=== PATIENT | female | born 1950 | race Caucasian/White ===

== ENCOUNTER → 2016-06-02 | Outpatient (CLI) | payer OTHER ==
[~2016-06-02] MED LIST: ADVIN10/60 INH; ALT5 PO; AMLO-110 PO; ASPEC81 PO; BUPR-79 PO; LPT20 PO; NRN/600 PO; OXYC-57 PO; PRAV20TA PO; PRLSR20 PO; SUCR1TAB29 PO; TRAM-10 PO; VNTHFA/IN INH; [UNRECOGNIZED DRUG - CODE] PO
[2016-06-02 12:46] LABS: ALT/SGPT 22 U/L (12-78); BLOOD UREA NITROGEN 14 mg/dl (7-18); BUN/CREATININE RATIO 15.2 (10-20); CALCIUM 9.3 mg/dl (8.5-10.1); CARBON DIOXIDE 28 mmol/L (21-32); CHLORIDE 105 mmol/L (98-107); CHOLESTEROL 155 mg/dl (0-200); CREATININE 0.95 mg/dl (0.60-1.20); GLUCOSE 103 mg/dl (70-99); POTASSIUM 4.2 mmol/L (3.5-5.1); SODIUM 141 mmol/L (136-145)
[2016-06-02 12:50] LABS: ALB/GLOB RATIO 1.1 (0.9-2); ALKALINE PHOSPHATASE 71 U/L (45-117); AST/SGOT 8 U/L (15-37); CHOLESTEROL/HDL RATIO 2.3; HDL CHOLESTEROL 68 mg/dl; LDL CHOLESTEROL CALCULATED 62 mg/dl; TRIGLYCERIDES 127 mg/dl (0-150); VERY LOW DENSITY LIPOPROT CALC 25 mg/dl
[2016-06-02 13:17] LABS: ESTIMATED AVERAGE GLUCOSE 105 mg/dl; HA1C FLAG Normal (Normal)
== END | disposition home or self-care (01) ==
LOC: C.LABBFT 08:28
PROVIDERS: ATTEND Nurse Practitioner
DX: R73.01 Impaired fasting glucose (principal); E78.5 Hyperlipidemia, unspecified

== ENCOUNTER → 2016-06-08 | Outpatient (CLI) | payer OTHER | END | disposition home or self-care (01) | LOC: C.PAPS 14:52 | PROVIDERS: ATTEND Nurse Practitioner | DX: Z12.4 Encounter for screening for malignant neoplasm of cervix (principal) ==

== ENCOUNTER 2016-06-17 14:57 | Inpatient (IN) | payer OTHER ==
[~2016-06-17] VITALS: Ht 154.9 cm; Wt 82.2 kg
[~2016-06-17 14:57] MED LIST changes: -AMLO-110 PO; -ASPEC81 PO; -LPT20 PO; -NRN/600 PO; -PRAV20TA PO; -SUCR1TAB29 PO; -TRAM-10 PO; -VNTHFA/IN INH
[2016-06-17] MEDS ORDERED: SODIUM CHLORIDE 0.9% 1000ML 1,000 ML IV SCH (17:21)
[2016-06-17] MEDS ORDERED: VNTHFA/IN INH (17:34)
[2016-06-17] MEDS ORDERED: PRLSR20 PO (17:34)
[2016-06-17] MEDS ORDERED: PRAV20TA PO (17:34)
[2016-06-17] MEDS ORDERED: NRN/600 PO (17:34)
[2016-06-17] MEDS ORDERED: AMLO-110 PO (17:34)
[2016-06-17] MEDS ORDERED: TRAM-10 PO (17:34)
[2016-06-17] MEDS ORDERED: SUCR1TAB29 PO (17:34)
[2016-06-17 18:11] LABS: BASO % 0.3 %; BASO ABS # 0.02 K/uL (0-0.2); COMPLETE YES; EOS % 2.1 %; HEMATOCRIT 40.9 % (37-47); IG% 0.1 %; LYMPH % 22.7 %; LYMPH ABS # 1.55 K/uL (1.2-3.4); MEAN CELL VOLUME 94.2 fL (80-100); MEAN CORPUSCULAR HEMOGLOBIN 33.2 pg (25-34); MEAN CORPUSCULAR HGB CONC 35.2 g/dl (32-36); MEAN PLATELET VOLUME 10.4 fL (7.4-10.4); MONO % 7.6 %; NEUT % 67.2 %; PLATELET COUNT 204 K/uL (130-400); RED BLOOD COUNT 4.34 M/uL (4.2-5.4); WHITE BLOOD COUNT 6.82 K/uL (4.8-10.8)
[2016-06-17 18:21] LABS: PARTIAL THROMBOPLASTIN RATIO 1.1; PROTHROMBIN TIME (PATIENT) 10.4 SECONDS (9.0-12.0)
[2016-06-17 18:28] LABS: BLOOD UREA NITROGEN 15 mg/dl (7-18); BUN/CREATININE RATIO 16.9 (10-20); CALCIUM 9.3 mg/dl (8.5-10.1); CARBON DIOXIDE 29 mmol/L (21-32); CHLORIDE 105 mmol/L (98-107); CREATININE 0.86 mg/dl (0.60-1.20); GLUCOSE 93 mg/dl (70-99); POTASSIUM 3.9 mmol/L (3.5-5.1); SODIUM 141 mmol/L (136-145)
--- NOTE | 2016-06-17 18:57 | DIAGNOSTIC IMAGING REPORT ---
HEAD CT NONCONTRAST CT DOSE: 537.48 mGy.cm HISTORY: Left-sided blurry vision. Headache. Stroke TECHNIQUE: Multiaxial CT images of the head were performed without the use of intravenous contrast. Automated exposure control was utilized for this study. Comparison: None. Findings: The paranasal sinuses and mastoid air cells are clear. The calvarium and skull base are intact. There is no mass, hematoma, midline shift, acute infarct. White matter hypodensity is nonspecific but suggestive of microvascular ischemic change. The ventricles and sulci demonstrate mild age-related involutional changes. Impression: No acute intracranial abnormality. Electronically signed by: Davian Rivers M.D. 06/17/2016 6:55 PM Dictated Date/Time: 06/17/2016 6:52 PM
[2016-06-17 19:06] LABS: URINE APPEARANCE CLEAR (CLEAR); URINE BILIRUBIN NEG (NEG); URINE COLOR YELLOW; URINE EPITHELIAL CELL AUTO 20-30 /lpf (0-5); URINE NITRITE NEG (NEG); URINE PH 6.5 (4.5-7.5); URINE SPECIFIC GRAVITY 1.011 (1.000-1.030); UROBILINOGEN NEG (NEG); ZZUR CULT IF INDIC CLEAN CATCH YES
[2016-06-17 19:08] LABS: MANUAL MICROSCOPIC REQUIRED? NO; REVIEW REQ? NO
[2016-06-17] MEDS ORDERED: ACETAMINOPHEN 500 MG TAB PO STA (19:11)
[2016-06-17] MEDS ORDERED: ASPIRIN 81 MG CHEW PO STA (19:16)
[2016-06-17] MEDS: HydrALAZINE HCL 20 MG/ML VIAL IV. STA (19:28)
[2016-06-17 19:33] LABS: BENZODIAZEPINE, URINE NEG (NEG); COCAINE,URINE NEG (NEG); PHENCYCLIDINE, URINE NEG (NEG)
[2016-06-17] MEDS ORDERED: NITROGLYCERIN 0.4 MG SL PER TAB CHARGE SL PRN (20:00)
[2016-06-17] MEDS ORDERED: TRAMADOL HCL 50 MG TAB PO PRN (20:00)
[2016-06-17] MEDS ORDERED: ALBUTEROL HFA 8 GM INHALER INH PRN (20:00)
[2016-06-17] MEDS ORDERED: PHARMACIST DISCHARGE MED REC CONSULT PRN (20:00)
[2016-06-17] MEDS ORDERED: HydrALAZINE HCL 20 MG/ML VIAL IV. PRN (20:15)
[2016-06-17] MEDS ORDERED: LORAZEPAM 0.5 MG TAB SL STA (21:26)
--- NOTE | 2016-06-17 22:09 | DIAGNOSTIC IMAGING REPORT ---
Brain MRA HISTORY: Dizziness. Stroke - Attention to [place] TECHNIQUE: 3-D [id number] MRA of the brain was performed without contrast. COMPARISON STUDY: None. FINDINGS: Visualized intracranial internal carotid arteries, distal vertebral arteries, and basilar artery are widely patent. There is no significant stenosis, occlusion, or aneurysm seen within the bilateral ACAs or MCAs. There are hypoplastic bilateral P1 segments. The bilateral posterior cerebral arteries are fed primarily through the bilateral posterior communicating arteries. Mild multifocal stenosis within the right [employer] which could be due to motion artifact. IMPRESSION: Mild multifocal stenosis within the right [employer] which could be due to motion artifact. Otherwise, no significant stenosis, occlusion, or aneurysm within the [place]. Electronically signed by: Davian Rivers M.D. 06/17/2016 10:07 PM Dictated Date/Time: 06/17/2016 10:02 PM
[2016-06-17] MEDS ORDERED: GADAVIST IV PRN (22:30)
--- NOTE | 2016-06-17 22:35 | DIAGNOSTIC IMAGING REPORT ---
NECK MRA HISTORY: Dizziness. Stroke TECHNIQUE: [id number] and gadolinium-enhanced MRA of the neck was performed both before and after the intravenous administration of contrast. All measurements were calculated based on NASCET criteria. COMPARISON STUDY: None. FINDINGS: The aortic arch and proximal great vessels are widely patent. There is no significant stenosis, occlusion, or dissection identified within the bilateral common carotid, internal carotid, or vertebral arteries. Tortuous bilateral internal carotid arteries. IMPRESSION: No significant stenosis, occlusion, or dissection identified within the carotid or vertebral arteries. Electronically signed by: Davian Rivers M.D. 06/17/2016 10:33 PM Dictated Date/Time: 06/17/2016 10:29 PM
[2016-06-17 22:59] VITALS: BP 169/100; PULSE 77; TEMP 36.4; O2SAT 97; Ht 154.9 cm; Wt 82.2 kg
--- NOTE | 2016-06-17 23:12 | DIAGNOSTIC IMAGING REPORT ---
Brain MRI WITH AND WITHOUT CONTRAST HISTORY: Dizziness. Stroke TECHNIQUE: Multiplanar multisequence MRI of the brain was performed both before and after the intravenous administration of contrast. COMPARISON STUDY: Head CT 06/17/2016. FINDINGS: There is no mass, hematoma, midline shift, or acute infarct. The paranasal sinuses are clear. The mastoid air cells are clear. The ventricles and sulci demonstrate mild age-related involutional changes. Scattered foci of T2 hyperintensity seen within the periventricular and subcortical white matter are nonspecific but suggestive of mild microvascular ischemic changes. The major vascular flow voids at the skull base are well-maintained. No abnormal enhancement. IMPRESSION: No acute intracranial abnormality. Scattered foci of T2 hyperintensity seen within the periventricular and subcortical white matter are nonspecific but favor microvascular ischemic change. Electronically signed by: Davian Rivers M.D. 06/17/2016 11:10 PM Dictated Date/Time: 06/17/2016 11:05 PM
[2016-06-17] MEDS ORDERED: DiphenhydrAMINE INJ 25 MG in SYRINGE 0 ML IV PRN (23:30)
--- NOTE | 2016-06-17 23:31 | History and Physical ---
History & Physical Date & Time of Service: Jun 17, 2016 at 23:31 Chief Complaint: Acute Right-Sided Weakness, Cva Primary Care Physician: Bushra House C.R.N.PCj History of Present Illness Source: patient, family The patient is a 66-year-old female who presents to emergency department with complaint of seeing black spots in front of her left eye at approximately 1300 today, face and neck flushing with a warmth sensation, dizziness, a generalized headache, decreased strength in her right leg affecting her ability to walk more so than usual, and decreased coordination with her right arm and hand when attempting to grab an object from a family member. Her granddaughter lives with her, reports that she had a history of previous TIA, for which she takes aspirin daily. The patient reports that she did not take her gabapentin for tramadol for chronic hip and back pain today. Past Medical/Surgical History Medical Problems: (1) Chronic back pain Status: Chronic (2) Hypercholesteremia Status: Chronic Social History Smoking Status: Never Smoker Smokeless Tobacco Use: No Alcohol Use: occasionally Drug Use: none Marital Status: Housing status: lives with family Occupational Status: retired Immunizations History of Influenza Vaccine: N/A History of Tetanus Vaccine?: No History of Pneumococcal: No History of Hepatitis B Vaccine: No Multi-Drug Resistant Organisms History of MDRO: No Allergies Coded Allergies: No Known Allergies (Verified Allergy, Unknown, *, 08/29/08) Home Medications Scheduled Albuterol Hfa (Ventolin Hfa), 2 PUFFS INH PRN UD Amlodipine (Norvasc), 5 MG PO DAILY Gabapentin (Neurontin), 600 MG PO TID Omeprazole (Prilosec), 20 MG PO DAILY Pravastatin (Pravachol ), 20 MG PO DAILY Sucralfate (Carafate), 1 GM PO AC Scheduled PRN Tramadol (Ultram), 1-2 MG PO Q6H PRN for Pain Review of Systems The patient denies chest pain, palpitations, shortness of breath, cough, lower extremity swelling, hearing change, sore throat, fevers, chills, sweats, weight change, fatigue, nausea, vomiting, abdominal pain, pelvic pain, blood in urine or stool, dysuria, urinary frequency or urgency, memory loss, rash, abnormal bruising or bleeding, imbalance, generalized weakness, night sweats, or allergy symptoms. The review of systems is otherwise negative other than for that already noted above, and at least 10 systems have been reviewed. Physical Exam Vital Signs Date Time Temp Pulse Resp B/P Pulse Ox O2 Delivery O2 Flow Rate FiO2 06/17/16 22:59 36.4 77 20 169/100 97 Room Air 06/17/16 21:15 66 18 180/90 96 06/17/16 20:06 64 18 197/83 97 Room Air 06/17/16 20:00 210/106 06/17/16 19:27 168/94 06/17/16 18:42 61 18 200/104 98 Room Air 06/17/16 17:53 70 18 214/116 97 Room Air 06/17/16 17:30 98 Room Air 06/17/16 15:03 36.7 74 18 180/91 98 Room Air 189/82 The patient is awake, well-developed and adequately nourished, alert and oriented 3, normocephalic and atraumatic, lying in bed and in no acute distress. HEENT--PERRL, EOMI, mucous membranes and oropharynx dry. Neck--supple, no JVD or bruits, thyroid normal, trachea midline, no adenopathy. Heart--normal S1 and S2, no extra beats, no murmurs, rubs or gallops. Lungs--clear bilaterally with good air movement, no respiratory distress, no accessory muscle use. Abdomen--normal bowel sounds and soft, nontender and nondistended, no hernias or masses, no organomegaly. Extremities--no cyanosis, clubbing or edema. There are good distal pulses b/l. Dermatologic--normal skin turgor, normal color, warm and dry, no abnormal lymph nodes, no rash. Neurologic--cranial nerves II through XII grossly intact. Sensory exam is normal. Left upper and lower extremity with normal strength. Right upper extremity 4+/5, and right lower extremity with 3+/5. Psychiatric--normal affect. Diagnostics Laboratory Results Results Past 24 Hours Test 06/17/16 18:00 06/17/16 18:33 06/17/16 18:34 06/17/16 18:40 Range/Units White Blood Count 6.82 4.8-10.8 K/uL Red Blood Count 4.34 4.2-5.4 M/uL Hemoglobin 14.4 12.0-16.0 g/dL Hematocrit 40.9 37-47 % Mean Corpuscular Volume 94.2 80-100 fL Mean Corpuscular Hemoglobin 33.2 25-34 pg Mean Corpuscular Hemoglobin Concent 35.2 32-36 g/dl Platelet Count 204 130-400 K/uL Mean Platelet Volume 10.4 7.4-10.4 fL Neutrophils (%) (Auto) 67.2 % Lymphocytes (%) (Auto) 22.7 % Monocytes (%) (Auto) 7.6 % Eosinophils (%) (Auto) 2.1 % Basophils (%) (Auto) 0.3 % Neutrophils # (Auto) 4.58 1.4-6.5 K/uL Lymphocytes # (Auto) 1.55 1.2-3.4 K/uL Monocytes # (Auto) 0.52 0.11-0.59 K/uL Eosinophils # (Auto) 0.14 0-0.5 K/uL Basophils # (Auto) 0.02 0-0.2 K/uL RDW Standard Deviation 40.2 36.4-46.3 fL RDW Coefficient of Variation 11.8 11.5-14.5 % Immature Granulocyte % (Auto) 0.1 % Immature Granulocyte # (Auto) 0.01 0.00-0.02 K/uL Prothrombin Time 10.4 9.0-12.0 SECONDS Prothromb Time International Ratio 1.0 0.9-1.1 Activated Partial Thromboplast Time 27.5 21.0-31.0 SECONDS Partial Thromboplastin Ratio 1.1 D-Dimer 250 0-500 ug/L FEU Sodium Level 141 136-145 mmol/L Potassium Level 3.9 3.5-5.1 mmol/L Chloride Level 105 98-107 mmol/L Carbon Dioxide Level 29 21-32 mmol/L Anion Gap 7.0 3-11 mmol/L Blood Urea Nitrogen 15 7-18 mg/dl Creatinine 0.86 0.60-1.20 mg/dl Est Creatinine Clear Calc Drug Dose 60.9 ml/min Estimated GFR () 80.5 Estimated GFR (Non- 69.4 BUN/Creatinine Ratio 16.9 10-20 Random Glucose 93 70-99 mg/dl Calcium Level 9.3 8.5-10.1 mg/dl Total Creatine Kinase 63 26-192 U/L Creatine Kinase MB < 0.5 0.5-3.6 ng/ml Creatine Kinase MB Ratio 0-3.0 Troponin I < 0.015 0-0.045 ng/ml Bedside Glucose 93 70-90 mg/dl Bedside Prothrombin Time INR 1.0 0.9-1.1 Urine Color YELLOW Urine Appearance CLEAR CLEAR Urine pH 6.5 4.5-7.5 Urine Specific [place] 1.011 1.000-1.030 Urine Protein NEG NEG Urine Glucose (UA) NEG NEG Urine Ketones NEG NEG Urine Occult Blood 1+ NEG Urine Nitrite NEG NEG Urine Bilirubin NEG NEG Urine Urobilinogen NEG NEG Urine Leukocyte Esterase MODERATE NEG Urine WBC (Auto) 10-30 0-5 /hpf Urine RBC (Auto) 5-10 0-4 /hpf Urine Hyaline Casts (Auto) 0 0-5 /lpf Urine Epithelial Cells (Auto) 20-30 0-5 /lpf Urine Bacteria (Auto) NEG NEG Urine Opiates Screen NEG NEG Urine Methadone, Qualitative NEG NEG Urine Barbiturates NEG NEG Urine Phencyclidine (PCP) Level NEG NEG Ur Amphetamine/Methamphetamine NEG NEG MDMA (Ecstasy) Screen NEG NEG Urine Benzodiazepines Screen NEG NEG Urine Cocaine Metabolite NEG NEG Urine Marijuana (THC) NEG NEG Test 06/17/16 20:52 Range/Units Microbiology Results 06/17/16 Urine Culture, Received Pending Diagnostic Radiology Patient Name: TATIANNA GIL Unit Number: [id number] Dictated: 06/17/161851 Transcribed: 06/17/161851 [employer] Printed Date/Time: [~ rep prt dt]/[~ rep prt tm] [~ rep ct labl] - [~ rep ct ivnm] [facility] [place] [address] Dictated: 06/17/161851 Transcribed: 06/17/161851 [employer] Printed Date/Time: [~ rep prt dt]/[~ rep prt tm] [~ rep ct labl] - [~ rep ct ivnm] [~ rep ct add3]] HEAD CT NONCONTRAST CT DOSE: 537.48 mGy.cm HISTORY: Left-sided blurry vision. Headache. Stroke TECHNIQUE: Multiaxial CT images of the head were performed without the use of intravenous contrast. Automated exposure control was utilized for this study. Comparison: None. Findings: The paranasal sinuses and mastoid air cells are clear. The calvarium and skull base are intact. There is no mass, hematoma, midline shift, acute infarct. White matter hypodensity is nonspecific but suggestive of microvascular ischemic change. The ventricles and sulci demonstrate mild age-related involutional changes. Impression: No acute intracranial abnormality. Electronically signed by: Davian Rivers M.D. 06/17/2016 6:55 PM Dictated Date/Time: 06/17/2016 6:52 PM The status of this report is Signed. Draft = Not yet reviewed or approved by Radiologist. Signed = Reviewed and approved by Radiologist. <AttendingPhy></AttendingPhy> <FamilyPhy>Bushra House, C.R.N.P.</FamilyPhy> <PrimaryPhy>Bushra House, C.R.N.P.</PrimaryPhy> <UnitNumber>[id number]</ UnitNumber> <VisitNumber>[id number]</VisitNumber> <PatientName>TATIANNA GIL</PatientName> <DateOfBirth>1950</DateOfBirth> <Location>[facility]</ Location> <ServiceDate>06/17/16</ServiceDate> <MNE>ESINDI</MNE> <OrderingPhy> Yovani Em MD</OrderingPhy> <OrderingPhyMNE>f rep ord dr españa</ OrderingPhyMNE> <DictatingPhyMNE>f rep dict dr españa</DictatingPhyMNE> <CCListMNE> f rep ct patria</CCListMNE> <AdmittingPhyMNE>f pt admit dr españa</AdmittingPhyMNE> < AttendingPhyMNE>f pt attend dr españa</AttendingPhyMNE> <ConsultingPhyMNE>f pt consult dr españa</ConsultingPhyMNE> <FamilyPhyMNE>f pt fam dr españa</FamilyPhyMNE> <OtherPhyMNE>f pt other dr españa</OtherPhyMNE> < PrimaryPhyMNE>f pt prim care dr españa</PrimaryPhyMNE> <ReferringPhyMNE>f pt referring dr españa</ReferringPhyMNE> EKG EKG shows normal sinus rhythm at 71 bpm, with no change compared to 08/25/2008. Impression Assessment and Plan CVA with residual weakness right lower extremity greater than right upper extremity--the patient will be admitted to the telemetry unit for serial cardiac enzymes, cardiac rhythm monitoring and a 2-D echocardiogram with Dopplers. CT of the head does not show any acute events. I've ordered an MRI of the brain combo, MRA of the neck combo, and an MRA of the head without contrast. We'll place on aspirin 81 mg by mouth daily. Consult neurology, PT, OT, speech therapy, pharmacy. Of note, she did not meet the time window for administration of TPA per ED records. Hypertension--we will allow permissive hypertension with systolic blood pressure of 180 overnight, and then modify target as the day progresses based on imaging and response. We'll continue amlodipine 5 mg by mouth daily. And place on hydralazine 10 mg IV every 4 hours when necessary systolic blood pressure greater than 185. Hypercholesterolemia--she's been on Pravachol 20 mg by mouth daily. We'll check a fasting lipid profile in the a.m., and change her statin to Lipitor 20 mg by mouth every morning starting tomorrow. GERD--continue Carafate 1 g by mouth before meals, and change omeprazole 20 mg by mouth daily to pantoprazole 40 mg by mouth daily. Peripheral neuropathy--continue gabapentin 600 mg by mouth 3 times a day. Asthma--continue Ventolin HFA 2 puffs 4 times a day when necessary. Level of Care Telemetry Advanced Directives Existing Advance Directive: No Existing Living Will: No Existing Power of Voice Coach: No Resuscitation Status FULL RESUSCITATION VTE Prophylaxis VTE Risk Assessment Done? Y/N: Yes Risk Level: High Given or contraindicated: SCD's
[2016-06-17] MEDS ORDERED: DiphenhydrAMINE HCL 50 MG/ML VIAL IV PRN (23:45)
[2016-06-18] MEDS: GABAPENTIN 600 MG TAB PO SCH ×3 (00:10→14:56)
--- NOTE | 2016-06-18 00:57 | EMERGENCY ROOM VISIT NOTE ---
History Report prepared by Macy: Anika Tello Under the Supervision of: Dr. Yovani Em M.D. First contact with patient: 17:20 Chief Complaint: DIZZY Stated Complaint: DIZZY, HIGH BP, BLACK SPOT LEFT EYE Nursing Triage Summary: Triage note: Pt reports she has been seeing black spots in her left eye since 1200. pt reports she had dizziness earlier but that has decreased. pt reports hx of high blood pressure and she takes medication but she has not missed any doses. pt reports headache. History of Present Illness The patient is a 66 year old female who presents to the Emergency Room with complaints of persistent visual changes in her left eye since 1300 today. She reports she has been seeing "black spots" in her left eye since approximately 1300 today. She states she was grocery shopping when her symptoms started and reports she started to "feel really hot and dizzy" and noticed her face and neck felt flushed. The dizziness has since mostly resolved. She describes her eye as feeling like "someone stung me with a rubber band". She denies bumping her eye or scratching it recently. She tried using eye drops to see if that helped alleviate her symptoms, but states they provided no relief. She also complains of a headache and admits to a history of hypertension, for which she takes daily medication. She denies missing any recent medication doses. The patient denies dropping anything recently or being unable to hold onto things. Her right leg does feel more weak than normal, but she states "that's my bad leg ". Her granddaughter reports the patient has a history of a previous TIA. The only daily blood thinner the patient takes is Aspirin. The patient notes she did not take her usual Gabapentin and Tramadol, for a history of chronic hip and back pain, today. Pt denies LOC, fevers, chills, diaphoresis, neck pain, chest pain, breathing difficulties, nausea, vomiting, abdominal pain, back pain , melena, hematochezia, urinary symptoms, numbness, lymphadenopathy, rash, or other complaints. Her primary care physician is Dr. Bushra House. Source of History: patient Onset: 1300 today Position: eye (left) Quality: other (left eye feels like it was "stung with a rubber band") Timing: other (persistent) Modifying Factors (Relieving): other (eye drops provided no relief) Associated Symptoms: + headache Review of Systems See HPI for pertinent positives and negatives. A total of ten systems were reviewed and were otherwise negative. Past Medical & Surgical Medical Problems: (1) Acute right-sided weakness (2) Chronic back pain (3) CVA (cerebral vascular accident) (4) Hypercholesteremia (5) Hypertension Social History Smoking Status: Never Smoker Alcohol Use: occasionally Drug Use: none Marital Status: Housing Status: lives with family Occupation Status: retired Current/Historical Medications Scheduled Albuterol Hfa (Ventolin Hfa), 2 PUFFS INH PRN UD Amlodipine (Norvasc), 5 MG PO DAILY Gabapentin (Neurontin), 600 MG PO TID Omeprazole (Prilosec), 20 MG PO DAILY Pravastatin (Pravachol ), 20 MG PO DAILY Sucralfate (Carafate), 1 GM PO AC Scheduled PRN Tramadol (Ultram), 1-2 MG PO Q6H PRN for Pain Allergies Coded Allergies: No Known Allergies (Verified Allergy, Unknown, *, 08/29/08) Physical Exam Vital Signs Date Time Temp Pulse Resp B/P Pulse Ox O2 Delivery O2 Flow Rate FiO2 06/17/16 20:06 64 18 197/83 97 Room Air 06/17/16 20:00 210/106 06/17/16 19:27 168/94 06/17/16 18:42 61 18 200/104 98 Room Air 06/17/16 17:53 70 18 214/116 97 Room Air 06/17/16 17:30 98 Room Air 06/17/16 15:03 36.7 74 18 180/91 98 Room Air 189/82 Physical Exam GENERAL: Awake, alert, well appearing, no distress HENT: Normocephalic, atraumatic. TM's normal. Oropharynx unremarkable. EYES: PERRL. Normal conjunctiva. Sclera non-icteric. Fundi normal. EOMI. Corneas are clear. Fundi normal. Left eye visual samuels intact to static and dynamic testing. NECK: Supple. No nuchal rigidity. FROM. RESPIRATORY: CTA CARDIAC: RRR. Extremities warm and well perfused. ABDOMEN: Soft, non distended. No tenderness to palpation. No rebound or guarding. No masses. MUSCULOSKELETAL: Unremarkable. EXTREMITIES: No edema. No discoloration. Gross motor strength 5/5 bilaterally. Right leg drift. NEURO: Normal sensorium. No sensory or motor deficits noted. Gait normal. Speech normal. Cranial nerves two through 12 intact. No pronator drift. Negative Romberg. Normal rapid alternating movements. SKIN: No rash or jaundice noted. LYMPH: No adenopathy. Medical Decision & Procedures ER Provider Diagnostic Interpretation: This CT scan was reviewed and interpreted by the radiologist and reviewed by myself. HEAD CT NONCONTRAST CT DOSE: 537.48 mGy.cm HISTORY: Left-sided blurry vision. Headache. Stroke TECHNIQUE: Multiaxial CT images of the head were performed without the use of intravenous contrast. Automated exposure control was utilized for this study. Comparison: None. Findings: The paranasal sinuses and mastoid air cells are clear. The calvarium and skull base are intact. There is no mass, hematoma, midline shift, acute infarct. White matter hypodensity is nonspecific but suggestive of microvascular ischemic change. The ventricles and sulci demonstrate mild age-related involutional changes. Impression: No acute intracranial abnormality. Electronically signed by: Davian Rivers M.D. 06/17/2016 6:55 PM Laboratory Results 06/17/16 18:00 Red Blood Count 4.34, Mean Corpuscular Volume 94.2, Mean Corpuscular Hemoglobin 33.2, Mean Corpuscular Hemoglobin Concent 35.2, Mean Platelet Volume 10.4, Neutrophils (%) (Auto) 67.2, Lymphocytes (%) (Auto) 22.7, Monocytes (%) (Auto) 7.6, Eosinophils (%) (Auto) 2.1, Basophils (%) (Auto) 0.3, Neutrophils # (Auto) 4.58, Lymphocytes # (Auto) 1.55, Monocytes # (Auto) 0.52, Eosinophils # (Auto) 0.14, Basophils # (Auto) 0.02 06/17/16 18:00 Test 06/17/16 18:00 06/17/16 18:33 06/17/16 18:34 06/17/16 18:40 White Blood Count 6.82 K/uL (4.8-10.8) Red Blood Count 4.34 M/uL (4.2-5.4) Hemoglobin 14.4 g/dL (12.0-16.0) Hematocrit 40.9 % (37-47) Mean Corpuscular Volume 94.2 fL (80-100) Mean Corpuscular Hemoglobin 33.2 pg (25-34) Mean Corpuscular Hemoglobin Concent 35.2 g/dl (32-36) Platelet Count 204 K/uL (130-400) Mean Platelet Volume 10.4 fL (7.4-10.4) Neutrophils (%) (Auto) 67.2 % Lymphocytes (%) (Auto) 22.7 % Monocytes (%) (Auto) 7.6 % Eosinophils (%) (Auto) 2.1 % Basophils (%) (Auto) 0.3 % Neutrophils # (Auto) 4.58 K/uL (1.4-6.5) Lymphocytes # (Auto) 1.55 K/uL (1.2-3.4) Monocytes # (Auto) 0.52 K/uL (0.11-0.59) Eosinophils # (Auto) 0.14 K/uL (0-0.5) Basophils # (Auto) 0.02 K/uL (0-0.2) RDW Standard Deviation 40.2 fL (36.4-46.3) RDW Coefficient of Variation 11.8 % (11.5-14.5) Immature Granulocyte % (Auto) 0.1 % Immature Granulocyte # (Auto) 0.01 K/uL (0.00-0.02) Prothrombin Time 10.4 SECONDS (9.0-12.0) Prothromb Time International Ratio 1.0 (0.9-1.1) Activated Partial Thromboplast Time 27.5 SECONDS (21.0-31.0) Partial Thromboplastin Ratio 1.1 D-Dimer 250 ug/L FEU (0-500) Anion Gap 7.0 mmol/L (3-11) Est Creatinine Clear Calc Drug Dose 60.9 ml/min Estimated GFR () 80.5 Estimated GFR (Non- 69.4 BUN/Creatinine Ratio 16.9 (10-20) Calcium Level 9.3 mg/dl (8.5-10.1) Total Creatine Kinase 63 U/L (26-192) Creatine Kinase MB < 0.5 ng/ml (0.5-3.6) Creatine Kinase MB Ratio (0-3.0) Troponin I < 0.015 ng/ml (0-0.045) Bedside Glucose 93 mg/dl (70-90) Bedside Prothrombin Time INR 1.0 (0.9-1.1) Urine Color YELLOW Urine Appearance CLEAR (CLEAR) Urine pH 6.5 (4.5-7.5) Urine Specific [place] 1.011 (1.000-1.030) Urine Protein NEG (NEG) Urine Glucose (UA) NEG (NEG) Urine Ketones NEG (NEG) Urine Occult Blood 1+ (NEG) Urine Nitrite NEG (NEG) Urine Bilirubin NEG (NEG) Urine Urobilinogen NEG (NEG) Urine Leukocyte Esterase MODERATE (NEG) Urine WBC (Auto) 10-30 /hpf (0-5) Urine RBC (Auto) 5-10 /hpf (0-4) Urine Hyaline Casts (Auto) 0 /lpf (0-5) Urine Epithelial Cells (Auto) 20-30 /lpf (0-5) Urine Bacteria (Auto) NEG (NEG) Urine Opiates Screen NEG (NEG) Urine Methadone, Qualitative NEG (NEG) Urine Barbiturates NEG (NEG) Urine Phencyclidine (PCP) Level NEG (NEG) Ur Amphetamine/Methamphetamine NEG (NEG) MDMA (Ecstasy) Screen NEG (NEG) Urine Benzodiazepines Screen NEG (NEG) Urine Cocaine Metabolite NEG (NEG) Urine Marijuana (THC) NEG (NEG) Laboratory results reviewed by me Medications Administered Medications (Trade) Dose Ordered Sig/Yelena Route Start Time Stop Time Status Last Admin Dose Admin Sodium Chloride (Nss 1000ml) 1,000 ml @ 50 mls/hr Q20H IV 06/17/16 17:21 06/17/16 23:24 DC 06/17/16 19:28 50 MLS/HR Hydralazine HCl (HydrALAZINE INJ) 10 mg NOW STAT IV. 06/17/16 19:11 06/17/16 19:12 DC 06/17/16 19:28 5 MG Acetaminophen (Tylenol Tab) 1,000 mg NOW STAT PO 06/17/16 19:11 06/17/16 19:12 DC 06/17/16 19:28 1,000 MG Aspirin (Aspirin Chew) 324 mg NOW STAT PO 06/17/16 19:16 06/17/16 19:17 DC 06/17/16 19:27 324 MG Tramadol HCl (Ultram Tab) 50 mg Q4H PRN PO 4/7/17 20:00 07/17/16 19:59 06/17/16 21:33 50 MG ECG Indication: other (hypertension) Rate (beats per minute): 71 Rhythm: normal sinus Findings: no acute ischemic change, no ectopy ED Course 1723: The patient was evaluated in room A4. A complete history and physical exam was performed. 1720: NSS 1000 ml @ 50 mls/hr IV. 1729: Intraocular pressure in the right eye is 24.3, and 22 in the left eye. 1910: Acetaminophen 1000 mg PO, Hydralazine 10 mg IV. 1915: Aspirin 324 mg PO. 1916: I discussed the patients case with Dr. Langston, [facility] Hospitalist. The patient will be further evaluated. 1929: I reevaluated the patient. She disclosed to me that when she was in the waiting room earlier, waiting to be seen, she briefly could not remember her last name or social security number, but when she got back into the exam room, her memory issues resolved. I discussed my plan for her to remain in the hospital for further evaluation and management and she verbalized complete understanding and agreement. Medical Decision Triage Nursing notes reviewed. The patient's presentation and history were concerning for visual disturbance as well as weakness. Etiologies such as metabolic, infection, hypo/hyperglycemia, electrolyte abnormalities, cardiac sources, intracerebral event, toxicologic, neurologic, migraine, vitreous detachment, arterial occlusion, glaucoma, as well as others were entertained. The patient was evaluated. On further history the patient then noted that she was having some trouble remembering her name and basic information. Her physical examination was concerning for drift in the right leg. The patient was seen 5 hours after the onset of symptoms. She underwent CT imaging which do not show any acute findings. Her blood pressure was elevated and she did get a dose of IV hydralazine. The patient was also given Tylenol and saline hydration. Her CBC and chemistry panel were unremarkable. Urinalysis and cardiac markers were unremarkable. The patient appears to have had a small stroke. She is currently out of the therapeutic window and her symptoms actually were getting better on reassessment. The patient will need further workup in the hospital. I did check her ocular pressures and they were minimally elevated but actually better in the affected eye. Consultation was made with Dr. Chandra Langston. He evaluated the patient in the emergency department and admitted her for further treatment. She was also given aspirin. The chart was completed utilizing iGo Speech voice recognition software. Grammatical errors, random word insertions, pronoun errors, and incomplete sentences are an occasional consequence of this system due to software limitations, ambient noise, and hardware issues. Any formal questions or concerns about the content, text, or information contained within the body of this dictation should be directly addressed to the physician for clarification. Consults Time Called: 1913 Consulting Physician: Dr. Langston [facility] Hospitalist Returned Call: 1916 I discussed the patients case with Dr. Langston [facility] Hospitalist. The patient will be further evaluated. Impression Primary Impression: Right leg weakness Additional Impressions: Subjective visual disturbance of left eye Headache Hypertension Scribe Attestation The scribe's documentation has been prepared under my direction and personally reviewed by me in its entirety. I confirm that the note above accurately reflects all work, treatment, procedures, and medical decision making performed by me. Departure Information Dispostion Being Evaluated By Hospitalist Referrals Bushra House, C.R.N.P. (PCP) Patient Instructions My [facility] Stroke History Time Last Known Well 1200 Stroke t-PA Criteria Reviewed Does NOT meet criteria for t-PA Reason t-PA Not Given Treatment not indicated (over 5 hours from onset) Problem Qualifiers Additional Impressions: Headache Headache type: unspecified Headache chronicity pattern: acute headache Intractability: not intractable Qualified Codes: R51 - Headache Hypertension Hypertension type: unspecified secondary hypertension Qualified Codes: I15.9 - Secondary hypertension, unspecified
[2016-06-18 04:07] VITALS: BP 129/80; PULSE 69; TEMP 36.4; O2SAT 96
[2016-06-18 05:32] LABS: BASO % 0.4 %; BASO ABS # 0.02 K/uL (0-0.2); COMPLETE YES; EOS % 2.6 %; HEMATOCRIT 38.2 % (37-47); IG% 0.2 %; LYMPH % 27.3 %; LYMPH ABS # 1.36 K/uL (1.2-3.4); MEAN CORPUSCULAR HEMOGLOBIN 32.9 pg (25-34); MEAN CORPUSCULAR HGB CONC 34.3 g/dl (32-36); MEAN PLATELET VOLUME 10.9 fL (7.4-10.4); MONO % 9.2 %; NEUT % 60.3 %; PLATELET COUNT 185 K/uL (130-400); RED BLOOD COUNT 3.98 M/uL (4.2-5.4); WHITE BLOOD COUNT 4.99 K/uL (4.8-10.8)
[2016-06-18 05:40] LABS: PROTHROMBIN TIME (PATIENT) 10.5 SECONDS (9.0-12.0)
[2016-06-18 05:54] LABS: BUN/CREATININE RATIO 17.8 (10-20); CALCIUM 8.9 mg/dl (8.5-10.1); CREATININE 0.88 mg/dl (0.60-1.20); POTASSIUM 3.9 mmol/L (3.5-5.1)
[2016-06-18 05:57] LABS: CHOLESTEROL/HDL RATIO 2.7
[2016-06-18] MEDS: SUCRALFATE 1 GM TAB PO SCH ×2 (06:11→12:54)
[2016-06-18 06:21] LABS: ESTIMATED AVERAGE GLUCOSE 103 mg/dl; HA1C FLAG Normal (Normal)
[2016-06-18 07:48] VITALS: BP 160/85; PULSE 70; TEMP 36.8; O2SAT 97
[2016-06-18] MEDS: ACETAMINOPHEN 325 MG TAB PO PRN ×2 (08:50→14:57)
[2016-06-18] MEDS ORDERED: ASPIRIN 81 MG ECTAB PO SCH (09:00)
[2016-06-18] MEDS ORDERED: ATORVASTATIN 20 MG TAB PO SCH (09:00)
[2016-06-18] MEDS ORDERED: AMLODIPINE BESYLATE 5 MG TAB PO SCH (09:00)
[2016-06-18] MEDS ORDERED: PANTOprazole SOD 40 MG TAB PO SCH (09:00)
--- NOTE | 2016-06-18 09:51 | ECHOCARDIOGRAM REPORT ---
*NOTICE TO RECEIVING CONSTITUTION PARTY AGENCY This information is strictly Confidential and protected under [place] law. [place] law prohibits you from making any further disclosure of this information unless further disclosure is expressly permitted by the written consent of the person to whom it pertains or is authorized by law. A general authorization for the release of medical or other information is not sufficient for this purpose. Hospital accepts no responsibility if the information is made available to any other person, INCLUDING THE PATIENT. Interpretation Summary * Name: TATIANNA GIL Study Date: 06/18/2016 07:06 AM BP: 129/80 mmHg * Patient Location: [facility] [place] HR: 67 * : 1950 (M/d/yyyy) Gender: Female Height: 61 in * Age: 66 yrs Ethnicity: [place] Weight: 181 lb * Ordering Physician: Chandra Langston * Referring Physician: Self, Referred * Performed By: Adams Hurtado RDCS * * Reason For Study: Cerebral ischemia/embolus * BSA: 1.8 m2 * -- Conclusions -- * There is borderline concentric left ventricular hypertrophy. * Left ventricular systolic function is normal. * Grade I diastolic dysfunction, (abnormal relaxation pattern). * The left atrium is borderline dilated. * Injection of contrast documented no interatrial shunt. * There is mild mitral regurgitation. * Right ventricular systolic pressure is normal. Procedure Details * A complete two-dimensional transthoracic echocardiogram was performed (2D, M-mode, Doppler and color flow Doppler). * The study was technically adequate. * A saline contrast injection was performed to assess for cardiac shunting. * The injection was performed through an intravenous line in the right arm. * The attending nurse who injected the saline contrast was MANDY Bansal. * A total of 10 cc of agitated saline was given. Left Ventricle * The left ventricle is normal in size. * There is borderline concentric left ventricular hypertrophy. * Left ventricular systolic function is normal. * Ejection Fraction = 60-65%. * Grade I diastolic dysfunction, (abnormal relaxation pattern). Right Ventricle * The right ventricle is normal in size and function. Atria * The left atrium is borderline dilated. * Right atrial size is normal. * Injection of contrast documented no interatrial shunt. Mitral Valve * The mitral valve leaflets appear thickened, but open well. * There is mild mitral regurgitation. Tricuspid Valve * The tricuspid valve is not well visualized, but is grossly normal. * There is mild tricuspid regurgitation. * Right ventricular systolic pressure is normal. Aortic Valve * The aortic valve is normal in structure and function. * No hemodynamically significant valvular aortic stenosis. * There is no significant aortic regurgitation. Great Vessels * The aortic root is normal size. Pericardium/Pleural * Trace pericardial effusion MMode 2D Measurements and Calculations IVSd 1.2 cm IVSs 1.6 cm LVIDd 4.3 cm LVIDs 2.8 cm LVPWd 1.2 cm LVPWs 1.6 cm IVS/LVPW 0.98 FS 35.9 % EDV(Teich) 83.4 ml ESV(Teich) 28.6 ml EF(Teich) 65.7 % EDV(cubed) 79.9 ml ESV(cubed) 21.1 ml EF(cubed) 73.6 % % IVS thick 35.7 % % LVPW thick 33.8 % LV mass(C)d 183.9 grams LV mass(C)dI 101.6 grams/m\S\2 LV mass(C)s 161.0 grams LV mass(C)sI 88.9 grams/m\S\2 SV(Teich) 54.8 ml SI(Teich) 30.3 ml/m\S\2 SV(cubed) 58.8 ml SI(cubed) 32.5 ml/m\S\2 EPSS 0.63 cm Ao root diam 2.8 cm Ao root area 6.0 cm\S\2 ACS 1.6 cm LA dimension 4.0 cm asc Aorta Diam 3.0 cm LA/Ao 1.5 LVOT diam 2.0 cm LVOT area 3.1 cm\S\2 LVAd ap4 21.4 cm\S\2 LVLd ap4 7.1 cm EDV(MOD-sp4) 53.0 ml LVAs ap4 11.7 cm\S\2 LVLs ap4 6.0 cm ESV(MOD-sp4) 19.0 ml EF(MOD-sp4) 64.2 % LVAd ap2 17.3 cm\S\2 LVLd ap2 6.3 cm EDV(MOD-sp2) 41.0 ml LVAs ap2 9.2 cm\S\2 LVLs ap2 5.3 cm ESV(MOD-sp2) 14.0 ml EF(MOD-sp2) 65.9 % SV(MOD-sp4) 34.0 ml SI(MOD-sp4) 18.8 ml/m\S\2 SV(MOD-sp2) 27.0 ml SI(MOD-sp2) 14.9 ml/m\S\2 Doppler Measurements and Calculations MV E max ele 83.4 cm/sec MV A max ele 99.3 cm/sec MV E/A 0.84 MV dec time 0.21 sec Ao V2 max 152.2 cm/sec Ao max PG 9.3 mmHg Ao max PG (full) 6.1 mmHg KEVIN(V,A) 1.8 cm\S\2 KEVIN(V,D) 1.8 cm\S\2 LV V1 max PG 3.2 mmHg LV V1 mean PG 1.6 mmHg LV V1 max 89.1 cm/sec LV V1 mean 59.1 cm/sec LV V1 VTI 22.5 cm SV(LVOT) 68.5 ml SI(LVOT) 37.8 ml/m\S\2 PA V2 max 102.8 cm/sec PA max PG 4.2 mmHg TR max ele 212.4 cm/sec
[2016-06-18 10:31] VITALS: BP 156/77; PULSE 74; TEMP 36.7; O2SAT 96
--- NOTE | 2016-06-18 12:45 | Neurology Consultation ---
Neurology Consultation Date of Consultation: Jun 18, 2016. Attending Physician: Albaro Bello D.O. Primary Care Physician: Bushra House C.R.N.P. Reason for Consultation: Acute right-sided weakness and concern for strokelike symptoms History of Present Illness Source: patient, clinic records, hospital records This is a 66-year-old right-handed female who presented with chief complaint of black spots in her left eye. She reports that yesterday she started to see black spots in her left eye. It was making her nauseous. She did have a migraine type headache at the time. She reports that it was a little different than her normal migraine headaches because it felt like some immediate snapped a rubber band on the left side of her head. Also described a tight sensation to the headaches. She reports that she normally gets a migraine headache every 2 months and has a history of ocular migraine headaches with flashing lights and wavy lines. Patient reports that she still has a mild headache this morning but it seems to be improving. She denies any specific loss of vision. No double vision. No new numbness or weakness. She reports that "the right side of her body is bad". She reports that her right leg and arm has been weak for a long time. She does report shooting pain down her right leg. She has a history of back surgery but still has chronic pain in her back and legs right greater than left. She reports that she is not able to lift her leg off of the bed, but can still walk on it unassisted. She will also reports episodes of flushing and dizziness not necessarily related to her chief complaint. Also reports frequent tiredness and fatigue. She reports last time that she saw an eye doctor was 2 years ago and they reported that she may have had this start of glaucoma. She also has frequent tinnitus. In addition when the patient arrived at the emergency room for systolic blood pressures was in the 200s. Her recent clinic notes it appears that the patient' s blood pressure has been uncontrolled documentation of systolic blood pressure in the 170/180s. MRI of the brain report and images were reviewed by myself. There is no acute stroke. There is signs of mild to moderate T2 hyperintensities in the subcortical white matter indicating mild to moderate cerebral small vessel ischemic disease (which could be consistent with a history of uncontrolled hypertension) MRA of the head and neck was unremarkable. There was some signs concerning for possible multifocal right [employer] stenosis versus motion artifact Echocardiogram showed left ventricular hypertrophy and diastolic dysfunction Tox screen was negative Total cholesterol 159, LDL 70, HDL 60, triglycerides 147, hemoglobin A1c 5.2 Hypercoagulable labs were sent off but of course are pending. Past Medical/Surgical History Medical Problems: (1) Headache Status: Acute (2) Right leg weakness Status: Acute (3) Subjective visual disturbance of left eye Status: Acute Patient reports a history of a TIA in the past. She reports that she was at work and she couldn't remember things. She was confused. She had a migrainous type headache. Her symptoms were low slow onset and building. She had trouble walking and was bumping into things. Later on the right side of her face went numb. She was worked up for a TIA at the time. Patient denies that she is taking a daily aspirin Chronic back pain, leg pain, right arm pain, and joint pain Dyslipidemia Recently uncontrolled hypertension Peripheral neuropathy Arthritis COPD History of rheumatic fever Family History Family history significant for a father who had a brain aneurysm in his 40s Mother reportedly had multiple medical issues Brother had lung troubles Social History Patient is normally independent in her activities of daily living. No tobacco. Rare beer. No illegal drug use. Smokeless Tobacco Use: No Alcohol Use: occasionally Drug Use: none Marital Status: Housing Status: lives with family Occupation Status: retired Allergies Coded Allergies: No Known Allergies (Verified Allergy, Unknown, *, 08/29/08) Current Inpatient Medications Current Inpatient Medications Medications (Trade) Dose Ordered Sig/Yelena Route Start Time Stop Time Status Last Admin Dose Admin Atorvastatin Calcium (Lipitor Tab) 20 mg QAM PO 06/18/16 09:00 07/18/16 08:59 06/18/16 08:51 20 MG Aspirin (Ecotrin Tab) 81 mg QAM PO 06/18/16 09:00 07/18/16 08:59 06/18/16 08:52 81 MG Miscellaneous Information (Pharmacist Discharge Med Rec Consult) 1 ea UD PRN N/A 06/17/16 20:00 07/17/16 19:59 Acetaminophen (Tylenol Tab) 650 mg Q4H PRN PO 06/17/16 20:00 07/17/16 19:59 06/18/16 08:50 650 MG Nitroglycerin (Nitrostat Tab) 0.4 mg UD PRN SL 06/17/16 20:00 07/17/16 19:59 Albuterol (Ventolin Hfa Inhaler) 2 puffs QID PRN INH 06/17/16 20:00 07/17/16 19:59 Amlodipine Besylate (Norvasc Tab) 5 mg DAILY PO 06/18/16 09:00 07/18/16 08:59 06/18/16 08:51 5 MG Gabapentin (Neurontin Tab) 600 mg TID PO 06/17/16 21:00 07/17/16 20:59 06/18/16 08:51 600 MG Sucralfate (Carafate Tab) 1 gm AC PO 06/18/16 07:00 07/18/16 07:59 06/18/16 06:11 1 GM Tramadol HCl (Ultram Tab) 50 mg Q4H PRN PO 06/17/16 20:00 07/17/16 19:59 06/17/16 21:33 50 MG Pantoprazole Sodium (Protonix Tab) 40 mg QAM PO 06/18/16 09:00 07/18/16 08:59 06/18/16 08:51 40 MG Hydralazine HCl (HydrALAZINE INJ) 10 mg Q4H PRN IV. 06/17/16 20:15 07/17/16 20:14 Gadobutrol (Gadavist) 8 mmol UD PRN IV 06/17/16 22:30 06/21/16 22:29 Diphenhydramine HCl (Benadryl Inj) 25 mg Q4H PRN IV 06/17/16 23:45 07/17/16 23:44 Review of Systems Complete review of systems otherwise negative except for the above-noted history of present illness Physical Exam Vital Signs (Past 24 Hrs): Date Time Temp Pulse Resp B/P Pulse Ox O2 Delivery O2 Flow Rate FiO2 06/18/16 10:31 36.7 74 18 156/77 96 Room Air 06/18/16 08:30 Room Air 06/18/16 07:48 36.8 70 17 160/85 97 Room Air 06/18/16 04:15 Room Air 06/18/16 04:07 36.4 69 15 129/80 96 Room Air 06/17/16 22:59 36.4 77 20 169/100 97 Room Air 06/17/16 21:15 66 18 180/90 96 06/17/16 20:06 64 18 197/83 97 Room Air 06/17/16 20:00 210/106 06/17/16 19:27 168/94 06/17/16 18:42 61 18 200/104 98 Room Air 06/17/16 17:53 70 18 214/116 97 Room Air 06/17/16 17:30 98 Room Air 06/17/16 15:03 36.7 74 18 180/91 98 Room Air 189/82 Gen.: Patient is alert and sitting in bed, in no acute distress. HEENT: Normocephalic /atraumatic, no scleral icterus Heart: Regular rate and rhythm Extremities: No gross deformities or rashes noted Neurological examination: Mental status: Patient is alert and oriented x3. Attention and concentration normal for the situation. Good fund of knowledge. Able to give her own history. Speech is fluent without any dysarthria or aphasia noted Cranial nerve: Funduscopic examination was unremarkable. No papilledema. Pupils equally round and reactive to light. Extraocular muscles intact without nystagmus. No facial asymmetry noted. Facial sensation intact. Tongue is midline. Good palatal elevation. Good shoulder shrug bilaterally. Hearing grossly intact to voice. Strength: Strength exam on the right was limited by pain and patient had diffuse giveaway weakness. Patient likely has some mild contact printer dry film weakness of the right hand compared to the left 4+/5. She had significant give way weakness when testing more proximal muscles secondary to pain. Patient initially was not able to raise her leg to gravity, was able to give good resistance, at least 4/ [address] weakness secondary to pain. Left upper and lower extremity were diffusely 5/5 compared to the right but often had give way weakness as well. Sensation: Grossly intact to light touch in all extremities. Deep tendon reflexes: +1 in bilateral biceps, brachioradialis and patellar. Coordination: Patient had good finger to nose without dysmetria Station within the bed was normal Laboratory Results Past 24 Hours: 06/18/16 05:18 Red Blood Count 3.98, Mean Corpuscular Volume 96.0, Mean Corpuscular Hemoglobin 32.9, Mean Corpuscular Hemoglobin Concent 34.3, Mean Platelet Volume 10.9, Neutrophils (%) (Auto) 60.3, Lymphocytes (%) (Auto) 27.3, Monocytes (%) (Auto) 9.2, Eosinophils (%) (Auto) 2.6, Basophils (%) (Auto) 0.4, Neutrophils # (Auto) 3.01, Lymphocytes # (Auto) 1.36, Monocytes # (Auto) 0.46, Eosinophils # (Auto) 0.13, Basophils # (Auto) 0.02 06/18/16 05:18 Test 06/17/16 18:00 06/17/16 18:33 06/17/16 18:34 06/17/16 18:40 Activated Partial Thromboplast Time 27.5 SECONDS (21.0-31.0) Partial Thromboplastin Ratio 1.1 D-Dimer 250 ug/L FEU (0-500) Estimated Average Glucose 103 mg/dl Hemoglobin A1c 5.2 % (4.5-5.6) Hepatitis C Antibody Screen NEG (NEG) Bedside Glucose 93 mg/dl (70-90) Bedside Prothrombin Time INR 1.0 (0.9-1.1) Urine Color YELLOW Urine Appearance CLEAR (CLEAR) Urine pH 6.5 (4.5-7.5) Urine Specific [place] 1.011 (1.000-1.030) Urine Protein NEG (NEG) Urine Glucose (UA) NEG (NEG) Urine Ketones NEG (NEG) Urine Occult Blood 1+ (NEG) Urine Nitrite NEG (NEG) Urine Bilirubin NEG (NEG) Urine Urobilinogen NEG (NEG) Urine Leukocyte Esterase MODERATE (NEG) Urine WBC (Auto) 10-30 /hpf (0-5) Urine RBC (Auto) 5-10 /hpf (0-4) Urine Hyaline Casts (Auto) 0 /lpf (0-5) Urine Epithelial Cells (Auto) 20-30 /lpf (0-5) Urine Bacteria (Auto) NEG (NEG) Urine Opiates Screen NEG (NEG) Urine Methadone, Qualitative NEG (NEG) Urine Barbiturates NEG (NEG) Urine Phencyclidine (PCP) Level NEG (NEG) Ur Amphetamine/Methamphetamine NEG (NEG) MDMA (Ecstasy) Screen NEG (NEG) Urine Benzodiazepines Screen NEG (NEG) Urine Cocaine Metabolite NEG (NEG) Urine Marijuana (THC) NEG (NEG) Test 06/17/16 20:52 06/18/16 05:18 06/18/16 10:00 White Blood Count 4.99 K/uL (4.8-10.8) Red Blood Count 3.98 M/uL (4.2-5.4) Hemoglobin 13.1 g/dL (12.0-16.0) Hematocrit 38.2 % (37-47) Mean Corpuscular Volume 96.0 fL (80-100) Mean Corpuscular Hemoglobin 32.9 pg (25-34) Mean Corpuscular Hemoglobin Concent 34.3 g/dl (32-36) Platelet Count 185 K/uL (130-400) Mean Platelet Volume 10.9 fL (7.4-10.4) Neutrophils (%) (Auto) 60.3 % Lymphocytes (%) (Auto) 27.3 % Monocytes (%) (Auto) 9.2 % Eosinophils (%) (Auto) 2.6 % Basophils (%) (Auto) 0.4 % Neutrophils # (Auto) 3.01 K/uL (1.4-6.5) Lymphocytes # (Auto) 1.36 K/uL (1.2-3.4) Monocytes # (Auto) 0.46 K/uL (0.11-0.59) Eosinophils # (Auto) 0.13 K/uL (0-0.5) Basophils # (Auto) 0.02 K/uL (0-0.2) RDW Standard Deviation 42.1 fL (36.4-46.3) RDW Coefficient of Variation 11.9 % (11.5-14.5) Immature Granulocyte % (Auto) 0.2 % Immature Granulocyte # (Auto) 0.01 K/uL (0.00-0.02) Prothrombin Time 10.5 SECONDS (9.0-12.0) Prothromb Time International Ratio 1.0 (0.9-1.1) Anion Gap 4.0 mmol/L (3-11) Est Creatinine Clear Calc Drug Dose 59.4 ml/min Estimated GFR () 78.2 Estimated GFR (Non- 67.5 BUN/Creatinine Ratio 17.8 (10-20) Calcium Level 8.9 mg/dl (8.5-10.1) Triglycerides Level 147 mg/dl (0-150) Cholesterol Level 159 mg/dl (0-200) HDL Cholesterol 60 mg/dl LDL Cholesterol, Calculated 70 mg/dl VLDL Cholesterol, Calculated 29 mg/dl Cholesterol/HDL Ratio 2.7 Total Creatine Kinase 47 U/L (26-192) Creatine Kinase MB < 0.5 ng/ml (0.5-3.6) Creatine Kinase MB Ratio (0-3.0) Troponin I < 0.015 ng/ml (0-0.045) Imaging As noted above in history of present illness Impression This is a 66-year-old right-handed female who presents with complaints of black dots in her left eye vision only along with a migrainous type headache. Patient denies any new weakness and reports that the weakness on the right side is old. On examination appears to have significant give way weakness on the right secondary to pain. There is no acute stroke on MRI. Patient does have signs of cerebral small vessel ischemic disease possibly related to uncontrolled hypertension. Other stroke risk factors include dyslipidemia. I suspect that the event that she describes in the past as a TIA, may have been a migrainous event and not clearly a vascular TIA. Plan Strongly encouraged the patient that I recommend that she follow up with ophthalmology as an outpatient regarding her left eye visual complaints Recommend taking aspirin 81 mg daily for stroke prevention in the setting of cerebral small vessel ischemic disease. Follow-up with primary care regarding uncontrolled blood pressure. Follow-up PT/OT for discharge planning. Stroke risk factor modifications and recommendations: Blood pressure recommendations for the first month post hospital discharge 150/ 90-130/80, and after that blood pressure recommendations 130/80-110/70 Total cholesterol goal 100- 200 and LDL goal less than 100 (at goal) Hemoglobin A1c goal less than 7 (at goal) Encourage cardiovascular exercise at least 3 times a week for 30 minutes. Thank you for allowing me to participate in this patient's care. If there is any questions or concerns, feel free to call/page me.
[2016-06-18] MEDS ORDERED: LPT20 PO (14:13)
[2016-06-18] MEDS ORDERED: ASPEC81 PO (14:13)
--- NOTE | 2016-06-18 14:23 | Discharge Instructions ---
Discharge Instructions Date of Service Jun 18, 2016. Admission Reason for Admission: Acute Right-Sided Weakness, Cva Discharge Discharge Diagnosis / Problem: visual disturbance, vitreous tear Discharge Goals Goal(s): Diagnostic testing, Therapeutic intervention Activity Recommendations Activity Limitations: resume your previous activity . Instructions / Follow-Up Instructions / Follow-Up visual changes: -it appears that you had a small vitreous tear causing the visual changes. Dr Raman will need to see you this coming week to continue to follow up on things and assist in management -- please call his office Monday - [phone] - and they'll get you set up cerebrovascular disease -while your current symptoms in the end did not seem consistent with TIA or stroke, we did see on MRI old "pockmarks" indicating that you likely do have a degree of cerebrovascular disease. the goal here will be to prevent a true stroke from occurring: -aspirin 81mg daily (Dr Raman noted that this will not at all be a problem with the eye issues) -change the pravastatin over to atorvastatin - for now 20mg, but ongoing dosing based on how you're doing, what your lipid numbers continue to be, and how well you tolerate it -repeat labs in about 3 months (CMP and lipid panel) -good blood pressure control (continue to follow with your PCP closely for this - we'd like you seen this week; follow your blood pressure randomly at home as well to see how you run at different times of day -lifestyle management: eating healthy (lots of fruits and vegetables, lean proteins. not much as far as starchy/sugary/bready carbs, and not much as far as bad (saturated) fats. after you see Dr Chen (we'll ask our nurse navigator to see if she can move this appointment up) and once it's clear that your heart is OK for it, we'll also want you to work towards 30 minutes of light exercise a day (like walking, pedalling, etc -- but again we'll want this to wait until after you've seen Dr Chen) Risk Factors for Stroke: You can reduce your chances of stroke by working with your medical provider to adopt a healthy lifestyle. Some specific ways to lower your chance of stroke are: * If you are a smoker, now is the time to stop smoking cigarettes * If you are diabetic, improve the control of your blood sugars * Avoid excessive amounts of alcohol * Control high blood pressure * Lose weight if you are overweight * Be sure to lead an active lifestyle * Eat a healthy diet low in salt, cholesterol and fat You should know about other risk factors for stroke that you are unable to control. These include: * Age 55 years or older * Male gender * Certain racial groups: , or / * Family History of Stroke, Mini stroke or Heart Attack * Sickle Cell Disease Follow Up: It is important for you to keep your follow up appointments with your medical provider. Current Hospital Diet Patient's current hospital diet: AHA Diet (Heart Healthy) Discharge Diet Recommended Diet: AHA Diet (Heart Healthy) Pending Studies Studies pending at discharge: no Laboratory Results Hemoglobin A1c Test 06/17/16 18:00 Range/Units Estimated Average Glucose 103 mg/dl Hemoglobin A1c 5.2 4.5-5.6 % Lipid Panel Test 06/18/16 05:18 Range/Units Triglycerides Level 147 0-150 mg/dl Cholesterol Level 159 0-200 mg/dl HDL Cholesterol 60 mg/dl Cholesterol/HDL Ratio 2.7 LDL Cholesterol, Calculated 70 mg/dl Medical Emergencies . Who to Call and When: Medical Emergencies: Call 911 immediately if you experience any of the following warning signs and symptoms of Stroke: * Sudden numbness or weakness of the face, arm or leg, especially on one side of the body * Sudden confusion, trouble speaking or understanding * Sudden trouble seeing in one or both eyes * Sudden trouble walking, dizziness, loss of balance or coordination * Sudden severe headache with no cause Do not delay calling 911 if you experience any warning signs or symptoms of a stroke. Delay in seeking medical attention may affect what treatments can be given to you. . Non-Emergent Contact Non-Emergency issues call your: Primary Care Provider . . "Provider Documentation" section prepared by Albaro Bello. Stroke Core Measures Reason no t-PA for Stroke: Treatment not indicated Reason no antithrom by day 2: Treatment provided - N/A Reason no antithrom at D/C: Treatment provided - N/A Reason no statin at D/C: Treatment provided - N/A Reason no anticoag w/a fib: Treatment not indicated VTE Core Measure Inpt VTE Proph given/why not?: SCD's (and ambulation)
--- NOTE | 2016-06-18 15:01 | OPHTHALMOLOGY CONSULTATION ---
DATE OF CONSULTATION: 06/18/2016 DATE OF CONSULTATION: 06/18/2016. CHIEF COMPLAINT: Vision changes left eye. HISTORY OF PRESENT ILLNESS: The patient is a very pleasant 66-year-old woman who presented to the Emergency Room with a new onset of black spots in her left eye. This was yesterday. She also reported systemic symptoms of dizziness, headache and decreased strength in her right leg. She had difficulty walking. She feels more comfortable with her left eye patched. She states at this time that much of the symptoms in the left eye have dissipated, although she still sees some "cob webs". PAST MEDICAL HISTORY: Back pain and high cholesterol. PAST OPHTHALMOLOGIC HISTORY: The patient reports she had an eye exam several years ago at which time she was informed that she may have the "beginnings of glaucoma." SOCIAL HISTORY: The patient is a nonsmoker, lives with family. ALLERGIES: No known drug allergies. MEDICATIONS: Albuterol, amlodipine, gabapentin, omeprazole, pravastatin and sucralfate. PHYSICAL EXAMINATION: Unfortunately, the patient did not have her glasses with her, so visual acuity without correction was 20/50 in the right eye and 20/70 in the left eye on a near acuity card. HEAD, EYES, EARS, NOSE, AND THROAT: Pupils were equally reactive without afferent pupillary defect. Motility examination was normal. Anterior segment examination with a penlight showed clear corneas, quiet and clear conjunctiva, deep and quiet anterior chambers, round and reactive irises, and clear lenses. Dilated funduscopic examination was notable for cup to disc ratio of 0.5 bilaterally. The retinal fundi were otherwise normal with no apparent retinal tears or detachments in either eye. In the left eye there was possibly some increased vitreous debris visible, but this is difficult assessment at the bedside. IMPRESSION: Based on her exam and symptoms, it appears that Ms. Vences has had a posterior vitreous detachment in the left eye. I did not see any retinal tears or detachments and so therefore no treatment is acutely needed. However, the bedside examination is somewhat limited so I would recommend a visit in the office sometime in the next few days to better evaluate the retinal periphery. If Ms. Vences should notice any sudden changes in her vision again then she should acutely seek ophthalmologic care. She can call our office and be connected to me through our answering service. Please call [phone] with questions.
[2016-06-18 15:17] VITALS: BP 155/84; PULSE 73; TEMP 36.5; O2SAT 96
--- NOTE | 2016-06-18 17:46 | Discharge Summary ---
Discharge Summary Date of Service Jun 18, 2016. Discharge Summary Admission Date: Jun 17, 2016 at 20:26 Discharge Date: Jun 18, 2016 Discharge Disposition: Home Principal Diagnosis: vitreous tear Immunizations: Have You Had Influenza Vaccine: N/A History of Tetanus Vaccine?: No History of Pneumococcal: No History of Hepatitis B Vaccine: No Procedures: Brain MRI WITH AND WITHOUT CONTRAST HISTORY: Dizziness. Stroke TECHNIQUE: Multiplanar multisequence MRI of the brain was performed both before and after the intravenous administration of contrast. COMPARISON STUDY: Head CT 06/17/2016. FINDINGS: There is no mass, hematoma, midline shift, or acute infarct. The paranasal sinuses are clear. The mastoid air cells are clear. The ventricles and sulci demonstrate mild age-related involutional changes. Scattered foci of T2 hyperintensity seen within the periventricular and subcortical white matter are nonspecific but suggestive of mild microvascular ischemic changes. The major vascular flow voids at the skull base are well-maintained. No abnormal enhancement. IMPRESSION: No acute intracranial abnormality. Scattered foci of T2 hyperintensity seen within the periventricular and subcortical white matter are nonspecific but favor microvascular ischemic change. Electronically signed by: Davian Rivers M.D. 06/17/2016 11:10 PM Dictated Date/Time: 06/17/2016 11:05 PM Brain MRA HISTORY: Dizziness. Stroke - Attention to [place] TECHNIQUE: 3-D [id number] MRA of the brain was performed without contrast. COMPARISON STUDY: None. FINDINGS: Visualized intracranial internal carotid arteries, distal vertebral arteries, and basilar artery are widely patent. There is no significant stenosis, occlusion, or aneurysm seen within the bilateral ACAs or MCAs. There are hypoplastic bilateral P1 segments. The bilateral posterior cerebral arteries are fed primarily through the bilateral posterior communicating arteries. Mild multifocal stenosis within the right [employer]IP[employer]AT [employer]AYER which could be due to motion artifact. IMPRESSION: Mild multifocal stenosis within the right [employer]IP[employer] SPRAY[employer] which could be due to motion artifact. Otherwise, no significant stenosis, occlusion, or aneurysm within the [place]. Electronically signed by: Davian Rivers M.D. 06/17/2016 10:07 PM -0 NECK MRA HISTORY: Dizziness. Stroke TECHNIQUE: [id number] and gadolinium-enhanced MRA of the neck was performed both before and after the intravenous administration of contrast. All measurements were calculated based on NASCET criteria. COMPARISON STUDY: None. FINDINGS: The aortic arch and proximal great vessels are widely patent. There is no significant stenosis, occlusion, or dissection identified within the bilateral common carotid, internal carotid, or vertebral arteries. Tortuous bilateral internal carotid arteries. IMPRESSION: No significant stenosis, occlusion, or dissection identified within the carotid or vertebral arteries. Electronically signed by: Davian Rivers M.D. 06/17/2016 10:33 PM Dictated Date/Time: 06/17/2016 10:29 PM Interpretation Summary * Name: TATIANNA GIL Study Date: 06/18/2016 07:06 AM BP: 129/80 mmHg * Patient Location: [facility] HR: 67 * : 1950 (M/d/yyyy) Gender: Female Height: 61 in * Age: 66 yrs Ethnicity: CA Weight: 181 lb * Ordering Physician: Chandra Langston * Referring Physician: Self, Referred * Performed By: Adams Hurtado RDCS * * Reason For Study: Cerebral ischemia/embolus * BSA: 1.8 m2 * -- Conclusions -- * There is borderline concentric left ventricular hypertrophy. * Left ventricular systolic function is normal. * Grade I diastolic dysfunction, (abnormal relaxation pattern). * The left atrium is borderline dilated. * Injection of contrast documented no interatrial shunt. * There is mild mitral regurgitation. * Right ventricular systolic pressure is normal. Procedure Details * A complete two-dimensional transthoracic echocardiogram was performed (2D, M-mode, Doppler and color flow Doppler). * The study was technically adequate. * A saline contrast injection was performed to assess for cardiac shunting. * The injection was performed through an intravenous line in the right arm. * The attending nurse who injected the saline contrast was MANDY Bansal. * A total of 10 cc of agitated saline was given. Left Ventricle * The left ventricle is normal in size. * There is borderline concentric left ventricular hypertrophy. * Left ventricular systolic function is normal. * Ejection Fraction = 60-65%. * Grade I diastolic dysfunction, (abnormal relaxation pattern). Right Ventricle * The right ventricle is normal in size and function. Atria * The left atrium is borderline dilated. * Right atrial size is normal. * Injection of contrast documented no interatrial shunt. Mitral Valve * The mitral valve leaflets appear thickened, but open well. * There is mild mitral regurgitation. Tricuspid Valve * The tricuspid valve is not well visualized, but is grossly normal. * There is mild tricuspid regurgitation. * Right ventricular systolic pressure is normal. Aortic Valve * The aortic valve is normal in structure and function. * No hemodynamically significant valvular aortic stenosis. * There is no significant aortic regurgitation. Great Vessels * The aortic root is normal size. Pericardium/Pleural * Trace pericardial effusion Hemoglobin A1c Test 06/17/16 18:00 Range/Units Estimated Average Glucose 103 mg/dl Hemoglobin A1c 5.2 4.5-5.6 % Lipid Panel Test 06/18/16 05:18 Range/Units Triglycerides Level 147 0-150 mg/dl Cholesterol Level 159 0-200 mg/dl HDL Cholesterol 60 mg/dl Cholesterol/HDL Ratio 2.7 LDL Cholesterol, Calculated 70 mg/dl Last Resulted CBC 06/18/16 05:18 Red Blood Count 3.98, Mean Corpuscular Volume 96.0, Mean Corpuscular Hemoglobin 32.9, Mean Corpuscular Hemoglobin Concent 34.3, Mean Platelet Volume 10.9, Neutrophils (%) (Auto) 60.3, Lymphocytes (%) (Auto) 27.3, Monocytes (%) (Auto) 9.2, Eosinophils (%) (Auto) 2.6, Basophils (%) (Auto) 0.4, Neutrophils # (Auto) 3.01, Lymphocytes # (Auto) 1.36, Monocytes # (Auto) 0.46, Eosinophils # (Auto) 0.13, Basophils # (Auto) 0.02 Last Resulted BMP 06/18/16 05:18 Consultations: neurology ophthalmology Discharge Exam Physical Exam: General Appearance: no apparent distress Eyes: EOMI ENT: hearing grossly normal Neck: trachea midline Respiratory/Chest: no respiratory distress, no accessory muscle use Extremities: normal inspection 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 CVA or TIA. 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 eye findings more concerning for primary ophthalmologic process. called dr williamson who promptly assessed pt - see his consult - and felt vitreous process going on that would require ongoing treatmetn but would be safe for home and safe for asa. dr gutierrez did not see anything acutely neurologic and rec'd asa -stable for home -asa 81mg daily -change statin to atorvastatin 20mg - possibly titrate to 40mg if tolerated for moderate potency statin benefits, but also maybe keep at 20 given lower end lipid numbers and data suggesting risk of ICH w too much suppression -ongoing PCP f/u for HTN -outpt ophthalmology f/u this coming week w dr williamson Total Time Spent: Greater than 30 minutes This includes examination of the patient, discharge planning, medication reconciliation, and communication with other providers. Discharge Instructions Please refer to the electronic Patient Visit Report (Discharge Instructions) for additional information. Additional Copies To Hardik Williamson M.D.; Bushra House, C.R.N.P.
[2016-06-23 08:18] LABS: FACTOR VIII ACTIV**SEND TO GMC 152 % (55 - 145)
[2016-06-23 16:35] LABS: ANTITHROMBINIII ACTIVITY** 104 % activity (80-120); B2 GLYCOPROTEIN IGA <9 SAU (<=20); B2 GLYCOPROTEIN IGG <9 SGU (<=20); B2 GLYCOPROTEIN IGM <9 SMU (<=20); LUPUS ANTICOAGULANT** TC36573X Negative (Negative); PROTEIN C ACTIVITY** TC 1777X 161 % (70-180); PROTEIN S ACT(FUNCT)**1779X 76 % (60-140)
--- NOTE | 2016-08-02 11:36 | EDITING REQUIRED CODING QUERY ---
SUPPORTING DIAGNOSIS NEEDED Dr. Langston, A supporting diagnosis is required for the test/procedure performed on this patient in order for us to be reimbursed by the patient's insurance. Please provide a supporting diagnosis for the following test/procedure listed below next to the test name along with your signature. *If there is no additional diagnosis for this patient that would support the following test/procedure please document that below next to the test/procedure. Test(s)/Procedure(s) that require a supporting diagnosis: * ([id number]) FACTOR II PROTHROMBIN MUTATION DIAGNOSIS:cva * ([id number]) FACTOR V MUTATION DIAGNOSIS:cva DATE OF SERVICE: 06/17/16 Provider Signature: Date: Thank you Aniceto Kitchen [facility] Information Management Once completed, please kindly fax back to [phone] For questions please call [phone]
== END 2016-06-18 16:06 | disposition home or self-care (01) | DRG 125 ==
LOC: ENRESERVTM → ENRESERVDT → C.EDB 14:58 → C.2T 20:26
PROVIDERS: ADMIT Hospitalist; ATTEND Family Medicine
DX: H43.812 Vitreous degeneration, left eye (principal); I69.351 Hemiplegia and hemiparesis following cerebral infarction affecting right dominant side; I10 Essential (primary) hypertension; E78.00 Pure hypercholesterolemia, unspecified; K21.9 Gastro-esophageal reflux disease without esophagitis; R42 Dizziness and giddiness; G62.9 Polyneuropathy, unspecified; J45.909 Unspecified asthma, uncomplicated; Z79.899 Other long term (current) drug therapy

== ENCOUNTER → 2016-12-12 | Outpatient (CLI) | payer OTHER ==
[~2016-12-12] MED LIST changes: -ADVIN10/60 INH; -ALT5 PO; +AMLO-110 PO; +ASPEC81 PO; -BUPR-79 PO; +LPT20 PO; +NRN/600 PO; -OXYC-57 PO; +SUCR1TAB29 PO; +TRAM-10 PO; +VNTHFA/IN INH; -[UNRECOGNIZED DRUG - CODE] PO
[2016-12-12 12:45] LABS: BLOOD UREA NITROGEN 15 mg/dl (7-18); BUN/CREATININE RATIO 16.4 (10-20); CALCIUM 9.1 mg/dl (8.5-10.1); CARBON DIOXIDE 27 mmol/L (21-32); CHLORIDE 107 mmol/L (98-107); CREATININE 0.89 mg/dl (0.60-1.20); GLUCOSE 101 mg/dl (70-99); POTASSIUM 4.5 mmol/L (3.5-5.1); SODIUM 141 mmol/L (136-145)
[2016-12-12 12:49] LABS: CHOLESTEROL 176 mg/dl (0-200); CHOLESTEROL/HDL RATIO 2.7; HDL CHOLESTEROL 65 mg/dl; LDL CHOLESTEROL CALCULATED 92 mg/dl; TRIGLYCERIDES 95 mg/dl (0-150); VERY LOW DENSITY LIPOPROT CALC 19 mg/dl
== END | disposition home or self-care (01) ==
LOC: C.LABBFT 08:03
PROVIDERS: ATTEND Nurse Practitioner
DX: E78.5 Hyperlipidemia, unspecified (principal)

== ENCOUNTER → 2017-01-19 | Outpatient (CLI) | payer OTHER ==
[2017-01-19 12:33] LABS: CALCIUM URINE 7.9 mg/dl
[2017-01-19 12:40] LABS: CALCIUM 9.5 mg/dl (8.5-10.1); CREATININE 0.84 mg/dl (0.60-1.20)
[2017-01-20 18:39] LABS: ALBUMIN 4.1 G/DL (3.8-4.8); GAMMA GLOBULIN 0.9 G/DL (0.8-1.7); TOTAL PROTEIN 6.8 G/DL (6.2-8.3)
== END | disposition home or self-care (01) ==
LOC: C.LAB1850 09:30
PROVIDERS: ATTEND Internal Medicine Rheumatology
DX: M80.00XA Age-related osteoporosis with current pathological fracture, unspecified site, initial encounter for fracture (principal); E55.9 Vitamin D deficiency, unspecified; E61.8 Deficiency of other specified nutrient elements

== ENCOUNTER → 2017-04-20 | Outpatient (CLI) | payer OTHER ==
--- NOTE | 2017-04-20 14:30 | MAMMOGRAPHY REPORT ---
BILATERAL DIGITAL SCREENING MAMMOGRAM TOMOSYNTHESIS WITH CAD: 04/20/2017 CLINICAL HISTORY: Patient has no complaints. TECHNIQUE: Breast tomosynthesis in addition to standard 2D mammography was performed. Current study was also evaluated with a Computer Aided Detection (CAD) system. COMPARISON: Comparison is made to exams dated: 03/25/2016 mammogram, 03/23/2015 mammogram, 10/17/2013 ma mmogram, 08/03/2009 mammogram - [facility], 05/29/2008, and 11/28/2006. BREAST COMPOSITION: The tissue of both breasts is almost entirely fatty. FINDINGS: No suspicious masses, calcifications, or areas of architectural distortion are noted in ei ther breast. There has been no significant interval change compared to prior exams. IMPRESSION: ACR BI-RADS CATEGORY 1: NEGATIVE There is no mammographic evidence of malignancy. A 1 year screening mammogram is recommended. The pa tient will receive written notification of the results. Approximately 10% of breast cancers are not detected with mammography. A negative mammographic report should not delay biopsy if a clinically suggestive mass is present. Ml Werner M.D. ah/:04/20/2017 14:01:12 Marketing Sales Supervisor: Nadir ROSARIO(R)(M), [facility] letter sent: Normal 1/2 BI-RADS Code: ACR BI-RADS Category 1: Negative
== END | disposition home or self-care (01) ==
LOC: C.MAMM 10:49
PROVIDERS: ATTEND Nurse Practitioner
DX: Z12.31 Encounter for screening mammogram for malignant neoplasm of breast (principal)

== ENCOUNTER → 2017-04-24 | Outpatient (CLI) | payer OTHER | END | disposition home or self-care (01) | LOC: C.LAB1850 11:05 | PROVIDERS: ATTEND Internal Medicine Rheumatology | DX: E61.8 Deficiency of other specified nutrient elements (principal) ==

== ENCOUNTER → 2017-06-05 | Outpatient (CLI) | payer OTHER ==
[2017-06-05 13:01] LABS: HEMATOCRIT 41.3 % (37-47); HEMOGLOBIN 13.8 g/dL (12.0-16.0); MEAN CELL VOLUME 97.2 fL (80-100); MEAN CORPUSCULAR HEMOGLOBIN 32.5 pg (25-34); MEAN CORPUSCULAR HGB CONC 33.4 g/dl (32-36); MEAN PLATELET VOLUME 11.3 fL (7.4-10.4); PLATELET COUNT 227 K/uL (130-400); RED CELL DISTRIBUTION WIDTH CV 12.2 % (11.5-14.5); RED CELL DISTRIBUTION WIDTH SD 43.3 fL (36.4-46.3)
[2017-06-05 13:48] LABS: ALBUMIN 3.7 gm/dl (3.4-5.0); ALT/SGPT 26 U/L (12-78); BLOOD UREA NITROGEN 16 mg/dl (7-18); CALCIUM 9.1 mg/dl (8.5-10.1); CARBON DIOXIDE 29 mmol/L (21-32); CHOLESTEROL 158 mg/dl (0-200); GLUCOSE 98 mg/dl (70-99); POTASSIUM 4.3 mmol/L (3.5-5.1); SODIUM 138 mmol/L (136-145)
[2017-06-05 13:54] LABS: ALKALINE PHOSPHATASE 72 U/L (45-117); AST/SGOT 12 U/L (15-37); LDL CHOLESTEROL CALCULATED 76 mg/dl; TOTAL PROTEIN 7.3 gm/dl (6.4-8.2)
[2017-06-05 13:56] LABS: HEMOGLOBIN A1C 5.3 % (4.5-5.6)
== END | disposition home or self-care (01) ==
LOC: C.LABBFT 08:40
PROVIDERS: ATTEND Nurse Practitioner
DX: I67.9 Cerebrovascular disease, unspecified (principal); R73.01 Impaired fasting glucose; I10 Essential (primary) hypertension; E55.9 Vitamin D deficiency, unspecified